=== PATIENT | female | born 1930 | race Caucasian/White ===

== ENCOUNTER 2017-01-05 07:08 | Emergency (ER) | payer OTHER, MEDICARE ==
--- NOTE | 2017-01-05 07:14 | PDOC ---
History of Present Illness - History of Present Illness Initial Comments: 01/05/17 08:12 Patient is a 86 year old female with a history of HTN, HLD who presents with left hip pain following a fall. The patient reports missing a step yesterday evening and fell in a twisting motion to the ground and striking the back of her head with immediate pain in her left hip. She states that she did not lose consciousness when she struck her head and was ambulatory with assistance after the fall. She reports that the pain in her hip worsened overnight with her being unable to move her left leg prompting her to present to the ED this morning. She is normally able to ambulate without assistance. She also reports some sharp pain worse with touch to the right side of her chest in the mid- axillary line. She denies fevers, chills, headache, SOB, chest pain, abdominal pain, or changes with urination or bowel movements. <Luther Willis - Last Filed: 01/05/17 08:24> <Gladys Hwang - Last Filed: 01/05/17 12:52> - General Chief Complaint: Injury Stated Complaint: FALL Time Seen by Provider: 01/05/17 07:14 Past History - Past Medical History Anemia: No Asthma: No Cancer: No Cardiac Disorders: No CVA: No COPD: No CHF: No Dementia: No Diabetes: Yes (BORDERLINE-NO MEDICINE) GI Disorders: No Disorders: No HTN: Yes Hypercholesterolemia: Yes Liver Disease: No Seizures: No Thyroid Disease: No - Surgical History Abdominal Surgery: No Appendectomy: No Cardiac Surgery: No Cholecystectomy: No Lung Surgery: No Neurologic Surgery: No Orthopedic Surgery: No - Psycho/Social/Smoking Cessation Hx Smoking History: Never smoked Have you smoked in the past 12 months: No Hx Alcohol Use: Yes (OCCASIONAL) Drug/Substance Use Hx: No Substance Use Type: None Hx Substance Use Treatment: No <Luther Willis - Last Filed: 01/05/17 08:24> <Gladys Hwang - Last Filed: 01/05/17 12:52> - Past Medical History Allergies/Adverse Reactions: Allergies Allergy/AdvReac Type Severity Reaction Status Date / Time Sulfa (Sulfonamide Allergy Verified 01/05/17 07:46 Antibiotics) Home Medications: Ambulatory Orders Aspirin [ASA -] 81 mg PO DAILY 03/05/13 Calcium Carbonate [Tums Ultra] 750 mg PO BID 03/05/13 Quinapril HCl [Accupril -] 40 mg PO DAILY 03/05/13 Simvastatin [Zocor -] 40 mg PO HS 03/05/13 Triamterene/Hydrochlorothiazid [Triamterene-Hctz 37.5-25 mg Tb] 1 each PO DAILY 03/05/13 Acetaminophen W/ Codeine #3 [Tylenol # 3 -] 1 tab PO PRN PRN #10 tablet MDD 3 Review of Systems - Review of Systems Constitutional: No: Chills, Fever HEENTM: No: Recent change in vision Respiratory: No: Cough, Shortness of Breath Cardiac (ROS): No: Chest Pain, Lightheadedness, Palpitations ABD/GI: Yes: Constipated. No: Diarrhea, Nausea, Vomiting : No: Burning, Dysuria, Hematuria Musculoskeletal: Yes: Joint Pain Integumentary: No: Rash Neurological: No: Headache, Numbness, Tingling, Weakness <Luther Willis - Last Filed: 01/05/17 08:24> *Physical Exam - Physical Exam Comments: 01/05/17 08:19 General Appearance: Nourished. No Apparent Distress HEENT: EOMI, ANA. No Pharyngeal Erythema, Tonsillar Exudate, Tonsillar Erythema Neck: No Decreased range of motion, or Lymphadenopathy or C-spine tenderness Respiratory/Chest: Lungs Clear, Normal Breath Sounds. Mild pinpoint tenderness to palpation in the right mid axillary line of the chest wall. No Crackles, Rales, Rhonchi, Wheezing Cardiovascular: Regular Rhythm, Regular Rate. No Murmur, Gallop/S3, Gallop/S4 Gastrointestinal/Abdominal: Normal Bowel Sounds, Soft. No Guarding, Rebound, Tenderness Extremity: Normal Capillary Refill, inability to range the left leg at the hip with active movement. Pain on passive movement of the left hip including leg roll. Sensation to light touch and temperature intact in the distal extremities , 2+ DP pulses bilaterally. Integumentary: Normal Color, Dry, Warm Neurologic: dough catcher II-XII NML intact, Fully Oriented, Alert, Normal Mood/Affect, Normal Response, Motor Strength 5/5. Normal Finger to Nose <Luther Willis - Last Filed: 01/05/17 08:24> - Vital Signs Last Vital Signs Temp Pulse Resp BP Pulse Ox 97.7 F 75 17 148/77 98 01/05/17 07:35 01/05/17 11:35 01/05/17 07:35 01/05/17 11:35 01/05/17 11:35 <Gladys Hwang - Last Filed: 01/05/17 12:52> ED Treatment Course - LABORATORY CBC & Chemistry Diagram: 01/05/17 07:41 01/05/17 09:24 - ADDITIONAL ORDERS Additional order review: Laboratory Results 01/05/17 09:24 Sodium 140 Potassium 4.5 Chloride 103 Carbon Dioxide 27 Anion Gap 10 BUN 25 H Creatinine 0.6 Creat Clearance w eGFR > 60 Random Glucose 107 H Calcium 9.7 Total Bilirubin 0.7 AST 34 ALT 27 Alkaline Phosphatase 53 Total Protein 7.8 Albumin 4.0 01/05/17 07:41 RBC 4.76 MCV 85.7 MCHC 33.0 RDW 14.4 MPV 10.4 Neutrophils % 72.9 Lymphocytes % 18.0 Monocytes % 7.2 Eosinophils % 1.2 Basophils % 0.7 - RADIOLOGY Radiology Studies Ordered: Category Date Time Status LOWER EXTREMITY CT W/O CONTR [CT] Stat CT Scan 01/05/17 11:10 Completed CHEST PA & LAT [RAD] Stat Radiology 01/05/17 08:01 Completed RIBS RIGHT SIDE [RAD] Stat Radiology 01/05/17 08:01 Completed - Medications Given in the ED: ED Medications Discontinued Medications Generic Name Dose Route Start Last Admin Trade Name Freq PRN Reason Stop Dose Admin Acetaminophen 975 mg 01/05/17 08:01 01/05/17 08:15 Tylenol - PO 01/05/17 08:02 975 mg ONCE ONE Administration <Gladys Hwang - Last Filed: 01/05/17 12:52> Medical Decision Making - Medical Decision Making 01/05/17 08:20 Patient is a 86 year old female with a history of HTN, HLD who presents with left hip pain following a fall. Differential includes but is not limited to: Intracranial bleed, Hip fracture, pelvic fracture, musculoskeletal strain. We will obtain a cbc, cmp to evaluate as well as chest, hip and pelvis radiographs and a head CT. 01/05/17 08:27 <Luther Willis - Last Filed: 01/05/17 08:24> *DC/Admit/Observation/Transfer <Luther Willis - Last Filed: 01/05/17 08:24> - Discharge Dispostion Admit: No <Gladys Hwang - Last Filed: 01/05/17 12:52> Diagnosis at time of Disposition: Fracture of superior pubic ramus Qualifiers: Encounter type: initial encounter Fracture type: closed Laterality: left Qualified Code(s): S32.512A - Fracture of superior rim of left pubis, initial encounter for closed fracture - Discharge Dispostion Disposition: HOME Condition at time of disposition: Stable - Prescriptions Prescriptions: Acetaminophen W/ Codeine #3 [Tylenol # 3 -] 1 tab PO PRN PRN #10 tablet MDD 3 PRN Reason: Pain - Referrals Referrals: Thiago Tello MD [Primary Care Provider] - Dereck Amaya MD [Staff Physician] - - Patient Instructions Printed Discharge Instructions: DI for Pelvic Fracture Additional Instructions: Please take all meds as prescribed. Please weight bear as tolerated. Please follow up with orthopedics as discussed. Please follow up with your PMD. Please return to the ED with any further concerns.
--- NOTE | 2017-01-05 07:18 | PDOC ---
Attending Attestation - Resident Resident Name: Luther Willis - ED Attending Attestation I have performed the following: I have examined & evaluated the patient, The case was reviewed & discussed with the resident, I agree w/resident's findings & plan, Exceptions are as noted - HPI HPI: 01/05/17 08:11 86yo female with a pmhx of HTN and HLD presents to the ED for eval of L hip pain. Pt states she was outside [employer] last night talking with some friends. States she didn't realize she was still standing on a step when she turned and had a mechanical fall off the last step landing on her L side. States she may have hit her head, but denies LOC. Pt c/o L hip pain today. States she needed assistance getting up last night after the fall and has needed help ambulating since the fall. States she is normally able to ambulate without assistance. States since the fall she has needed assistance with ambulation. Pt denies cp/ sob/lightheaded, dizziness, palpitations prior to or since the fall. No peace. No neck pain. No back pain. No paresthesias. No cp/sob. No abd pain. No n/v/d. Pt states L hip pain and R rib pain mid-axillary. No other weakness. Denies f/ c. No cough. No congestion. No rhinorrhea. No dysuria or urinary complaints. Has not taken any meds for pain. No other complaints. - Physicial Exam PE: 01/05/17 08:14 Gen: aaox3, nad Head: NC/AT Neck: supple, no c-spine ttp, no step offs or deformities, FROM of neck HEENT: EOMI, post pharynx clear Heart: +S1S2 reg, no anterior chest wall ttp, pinpoint R midaxillary line ttp, no ecchymosis to chest wall Lungs: CTA b/l Abd: soft, nt/nd +bx Back: no midline ttp, no step offs or deformities Ext: radial and pedal pulses 2+, no paresthesias, sensation intact, FROM of UE, muscle strength 5/5 UE, FROM of RLE, limited ROM of LLE secondary to pain, +log roll LLE, no ttp L lateral hip, mild ttp medial groin/inguinal canal, no knee ttp, no ankle ttp, FROM of ankle, Limited ROM of knee secondary to pain in hip Skin: no ecchymosis, intact Neuro: CN II-XII grossly intact, no focal deficits Psych: appropriate - Medical Decision Making 01/05/17 08:18 a/p: 86yo female with a mechanical fall 1 day prior to arrival in the ED -labs -ekg -cxr with rib xray -ct head (pt is on ASA) -pelvis xray and L hip xray -pain control -reassess 01/05/17 09:28 ct reviewed: moderate atrophy, chronic microvascular ischemic changes, no gross evidence of focal intracranial lesion or hemorrhage is seen 01/05/17 11:26 xrays reviewed: no acute fx, pt with difficulty ambulating in the ED. will obtain ct to r/o occult fx of L hip <Gladys Hwang - Last Filed: 01/05/17 11:26> - Medical Decision Making 01/05/17 12:40 Orthopedist certified control systems technician paged via phone answering service. ABY Resendez certified control systems technician. Awaiting call back. 01/05/17 12:44 ABY Resendez responded to the page and the patient's case was discussed. Patient to follow up in office as outpatient. ABY agrees with plan. 01/05/17 12:53 Dr. Tello paged via phone answering service. Informed Dr. Méndez is certified control systems technician. Awaiting call back. 01/05/17 12:56 Dr. Méndez responded to the page. Patients case was discussed. Agrees with plan. Documentation prepared by Meghna Sloan, acting as biomedical equipment specialist for Gladys Hwang MD <Meghna Sloan - Last Filed: 01/05/17 12:57> Heart Score/ECG Review - ECG Intrepretation Comment:: 01/05/17 08:19 ekg: sinus at 73, nl axis, nl interval, fusion complexes seen, no acute st/t wave findings <Gladys Hwang - Last Filed: 01/05/17 11:26>
[2017-01-05 08:01] VITALS: TEMP 97.7; BMI 24.0
[2017-01-05] MEDS ORDERED: ACETAMINOPHEN 325 MG TABLET (FP) PO ONE (08:01)
[2017-01-05] MEDS ORDERED: ACETAMINOPHEN 325 MG TABLET (FP) ONE (08:17)
[2017-01-05 08:55] LABS: BASOPHIL 0.7 % (0-2.0); EOSINOPHIL 1.2 % (0-4.5); MCH 28.3 pg (25.7-33.7); MEAN CELL VOLUME 85.7 fl (80-96); MEAN PLT VOLUME 10.4 fl (7.5-11.1); NEUTROPHILS 72.9 % (42.8-82.8); RDW 14.4 % (11.6-15.6); WHITE BLOOD COUNT 9.2 K/mm3 (4.0-10.0)
[2017-01-05 09:51] LABS: ALK PHOS 53 U/L (45-117); ANION GAP 10 (8-16); BILIRUBIN,TOTAL 0.7 mg/dL (0.2-1.0); CALCIUM 9.7 mg/dL (8.5-10.1); CO2 27 mmol/L (21-32); CREATININE 0.6 mg/dL (0.55-1.02); GLUCOSE,RANDOM 107 mg/dL (74-106); SGOT/AST 34 U/L (15-37); SGPT/ALT 27 U/L (12-78); TOT PROT 7.8 g/dl (6.4-8.2)
[2017-01-05 10:14] LABS: PLATELET COUNT 187 K/MM3 (134-434); PLATELET ESTIMATE ADEQUATE (NORMAL)
--- NOTE | 2017-01-05 12:30 | EKG ---
Test Reason : Blood Pressure : / mmHG Vent. Rate : 073 BPM Atrial Rate : 073 BPM P-R Int : 172 ms QRS Dur : 084 ms QT Int : 438 ms P-R-T Axes : 056 -07 031 degrees QTc Int : 482 ms SINUS RHYTHM WITH FUSION COMPLEXES POSSIBLE LEFT ATRIAL ENLARGEMENT BORDERLINE ECG NO PREVIOUS ECGS AVAILABLE BASE LLINE ARTIFACTS REPEAT EKG IF CLINICALLY INDICATED Confirmed by VALORIE RODNEY MD ([id number]) on 01/05/2017 12:29:56 PM Referred By: Confirmed By:VALORIE RODNEY MD
[2017-01-05 13:14] VITALS: BP 154/69; PULSE 71
== END 2017-01-05 13:14 | disposition home or self-care (01) ==
LOC: JER 07:08
DX: S32.512A Fracture of superior rim of left pubis, initial encounter for closed fracture (principal); W10.8XXA Fall (on) (from) other stairs and steps, initial encounter; Y93.89 Activity, other specified; Y92.22 Religious institution as the place of occurrence of the external cause; Y99.8 Other external cause status; I10 Essential (primary) hypertension; E11.9 Type 2 diabetes mellitus without complications; E78.00 Pure hypercholesterolemia, unspecified
CPT/HCPCS: 36415; 70450-TC; 71020-TC; 71101-TC-RT; 73523-TC; 73700-TC-RT; 80053; 85025; 93005; 93010; 99282-25

== ENCOUNTER 2017-02-09 14:49 | Inpatient (IN) | payer OTHER, MEDICARE ==
[2017-02-09] MEDS ORDERED: ACETAMINOPHEN 1000 MG/100 ML VIAL (NON FORMULARY) IVPB ONE (16:42)
[2017-02-09] MEDS ORDERED: SODIUM CHLORIDE 1,000 ML IV SCH (16:45)
[2017-02-09 16:50] LABS: BASOPHIL 0.4 % (0-2.0); EOSINOPHIL 0.2 % (0-4.5); MCHC 33.1 g/dl (32.0-36.0); MEAN CELL VOLUME 84.5 fl (80-96); MEAN PLT VOLUME 10.4 fl (7.5-11.1); NEUTROPHILS 76.3 % (42.8-82.8); PLATELET COUNT 374 K/MM3 (134-434); RDW 13.7 % (11.6-15.6); WHITE BLOOD COUNT 12.1 K/mm3 (4.0-10.0)
[2017-02-09] MEDS ORDERED: ACETAMINOPHEN INJECTION 100 ML IVPB ONE (17:11)
--- NOTE | 2017-02-09 17:17 | PDOC ---
History of Present Illness - General Chief Complaint: Lethargy Stated Complaint: LETHARGY History Source: Patient, Family, Primary Care Provider Exam Limitations: No Limitations - History of Present Illness Initial Comments: 02/09/17 17:02 This 86 year old female fell resulting in a pelvic fracture. It was stable and pt was discharged to home. she is now brought in by her family becasue they are concerned she hasn't eaten or drank in a few days. She does not want to take the pain medications because it makes her nausea and loopy. Dr. Tello requested pt to come into ER for admission for failure to thrive, dehydration evaluation. Past History - Past Medical History Allergies/Adverse Reactions: Allergies Allergy/AdvReac Type Severity Reaction Status Date / Time Sulfa (Sulfonamide Allergy Verified 01/05/17 07:46 Antibiotics) Home Medications: Ambulatory Orders Aspirin [ASA -] 81 mg PO DAILY 03/05/13 Calcium Carbonate [Tums Ultra] 750 mg PO BID 03/05/13 Quinapril HCl [Accupril -] 40 mg PO DAILY 03/05/13 Simvastatin [Zocor -] 40 mg PO HS 03/05/13 Triamterene/Hydrochlorothiazid [Triamterene-Hctz 37.5-25 mg Tb] 1 each PO DAILY 03/05/13 Anemia: No Asthma: No Cancer: No Cardiac Disorders: No CVA: No COPD: No CHF: No Dementia: No Diabetes: Yes (BORDERLINE-NO MEDICINE) GI Disorders: No Disorders: No HTN: Yes Hypercholesterolemia: Yes Liver Disease: No Seizures: No Thyroid Disease: No - Surgical History Abdominal Surgery: No Appendectomy: No Cardiac Surgery: No Cholecystectomy: No Lung Surgery: No Neurologic Surgery: No Orthopedic Surgery: No - Suicide/Smoking/Psychosocial Hx Smoking History: Never smoked Have you smoked in the past 12 months: No Information on smoking cessation initiated: No Hx Alcohol Use: No Drug/Substance Use Hx: No Substance Use Type: None Hx Substance Use Treatment: No Review of Systems - Review of Systems Able to Perform ROS?: Yes Constitutional: No: Symptoms Reported HEENTM: No: Symptoms Reported Respiratory: No: Symptoms reported Cardiac (ROS): No: Symptoms Reported ABD/GI: Yes: Nausea, Poor Appetite, Poor Fluid Intake. No: Abdominal Distended , Vomiting : No: Symptoms Reported Musculoskeletal: Yes: Other (diff in ambulating with pelvic pain) Integumentary: No: Symptoms Reported *Physical Exam - Vital Signs Last Vital Signs Temp Pulse Resp BP Pulse Ox 97.9 F 90 18 155/66 100 02/09/17 14:49 02/09/17 14:49 02/09/17 14:49 02/09/17 14:49 02/09/17 14:49 - Physical Exam HEENT: positive: Normal Voice Respiratory/Chest: positive: Lungs Clear Cardiovascular: positive: Regular Rate Gastrointestinal/Abdominal: positive: Normal Bowel Sounds, Flat, Soft, Other ( pain on standing due to pelvic pain) Integumentary: positive: Normal Color, Dry, Warm ED Treatment Course - LABORATORY CBC & Chemistry Diagram: 02/09/17 16:45 02/09/17 16:45 - ADDITIONAL ORDERS Additional order review: 02/09/17 16:45 RBC 4.64 MCV 84.5 MCHC 33.1 RDW 13.7 MPV 10.4 Neutrophils % 76.3 Lymphocytes % 13.2 D Monocytes % 9.9 Eosinophils % 0.2 D Basophils % 0.4 - RADIOLOGY Radiology Studies Ordered: Category Date Time Status PELVIS [RAD] Stat Radiology 02/09/17 16:42 Ordered Medical Decision Making - Medical Decision Making 02/09/17 17:06 Pt seen and examined. Pt has not had much to eat or drink in several days and concern for dehydration with a new recent hip fracture. -labs follow up -pelvic xray -IVF -pain meds -dispo probable admission
--- NOTE | 2017-02-09 17:37 | PDOC ---
*Physical Exam - Vital Signs Last Vital Signs Temp Pulse Resp BP Pulse Ox 97.9 F 90 18 155/66 100 02/09/17 14:49 02/09/17 14:49 02/09/17 14:49 02/09/17 14:49 02/09/17 14:49 - Physical Exam Comments: 02/09/17 17:37 The patient was examined by [BALWINDER Sanabria] under my direct supervision. I personally evaluated the patient. I concur with the above findings and the plan of care. ED Treatment Course - LABORATORY CBC & Chemistry Diagram: 02/09/17 16:45 02/09/17 17:51 - ADDITIONAL ORDERS Additional order review: Laboratory Results 02/09/17 02/09/17 16:45 16:45 Sodium Cancelled Potassium Cancelled Chloride Cancelled Carbon Dioxide Cancelled Anion Gap Cancelled BUN Cancelled Creatinine Cancelled Creat Clearance w eGFR Cancelled Random Glucose Cancelled Calcium Cancelled Total Bilirubin Cancelled AST Cancelled ALT Cancelled Alkaline Phosphatase Cancelled Total Protein Cancelled Albumin Cancelled Cancelled Prealbumin Cancelled 02/09/17 16:45 RBC 4.64 MCV 84.5 MCHC 33.1 RDW 13.7 MPV 10.4 Neutrophils % 76.3 Lymphocytes % 13.2 D Monocytes % 9.9 Eosinophils % 0.2 D Basophils % 0.4 *DC/Admit/Observation/Transfer Diagnosis at time of Disposition: Failure to thrive, Dehydration
[2017-02-09 18:33] LABS: URINE APPEARANCE CLEAR; URINE BILIRUBIN NEGATIVE (NEGATIVE); URINE BLOOD NEGATIVE (NEGATIVE); URINE COLOR LTYELLOW; URINE GLUCOSE (UA) NEGATIVE (NEGATIVE); URINE KETONE NEGATIVE (NEGATIVE); URINE NITRITE NEGATIVE (NEGATIVE); URINE PROTEIN NEGATIVE (NEGATIVE); URINE UROBILINOGEN NEGATIVE mg/dL (0.2-1.0)
[2017-02-09 18:45] LABS: ALBUMIN 3.1 g/dl (3.4-5.0); ANION GAP 10 (8-16); BILIRUBIN,TOTAL 0.5 mg/dL (0.2-1.0); CALCIUM 8.8 mg/dL (8.5-10.1); CO2 26 mmol/L (21-32); GLUCOSE,RANDOM 120 mg/dL (74-106); SGOT/AST 12 U/L (15-37); SGPT/ALT 21 U/L (12-78); TOT PROT 7.1 g/dl (6.4-8.2)
[2017-02-09 18:47] LABS: ALK PHOS 310 U/L (45-117)
[2017-02-09] MEDS ORDERED: DEXTROSE 5%-0.45% SALINE 1,000 ML IV SCH (19:45)
--- NOTE | 2017-02-09 19:55 | PDOC ---
*Physical Exam - Vital Signs Last Vital Signs Temp Pulse Resp BP Pulse Ox 98.1 F 82 17 124/63 96 02/09/17 19:05 02/09/17 19:05 02/09/17 19:05 02/09/17 19:05 02/09/17 19:05 ED Treatment Course - LABORATORY CBC & Chemistry Diagram: 02/09/17 16:45 02/09/17 17:51 - ADDITIONAL ORDERS Additional order review: Laboratory Results 02/09/17 02/09/17 02/09/17 18:25 17:51 17:51 Sodium 140 Potassium 3.9 Chloride 104 Carbon Dioxide 26 Anion Gap 10 BUN 52 H D Creatinine 1.0 D Creat Clearance w eGFR 52.69 Random Glucose 120 H Calcium 8.8 Total Bilirubin 0.5 D AST 12 L D ALT 21 D Alkaline Phosphatase 310 H D Total Protein 7.1 Albumin 3.1 L 3.1 L D Prealbumin 11.6 L Urine Color Ltyellow Urine Appearance Clear Urine pH 5.0 Urine Protein Negative Urine Glucose (UA) Negative Urine Ketones Negative Urine Blood Negative Urine Nitrite Negative Urine Bilirubin Negative Urine Urobilinogen Negative 02/09/17 02/09/17 16:45 16:45 Sodium Cancelled Potassium Cancelled Chloride Cancelled Carbon Dioxide Cancelled Anion Gap Cancelled BUN Cancelled Creatinine Cancelled Creat Clearance w eGFR Cancelled Random Glucose Cancelled Calcium Cancelled Total Bilirubin Cancelled AST Cancelled ALT Cancelled Alkaline Phosphatase Cancelled Total Protein Cancelled Albumin Cancelled Cancelled Prealbumin Cancelled Urine Color Urine Appearance Urine pH Urine Protein Urine Glucose (UA) Urine Ketones Urine Blood Urine Nitrite Urine Bilirubin Urine Urobilinogen 02/09/17 16:45 RBC 4.64 MCV 84.5 MCHC 33.1 RDW 13.7 MPV 10.4 Neutrophils % 76.3 Lymphocytes % 13.2 D Monocytes % 9.9 Eosinophils % 0.2 D Basophils % 0.4 - RADIOLOGY Radiology Studies Ordered: Category Date Time Status CHEST X-RAY PORTABLE* [RAD] Stat Radiology 02/09/17 19:42 Ordered - Medications Given in the ED: ED Medications Discontinued Medications Generic Name Dose Route Start Last Admin Trade Name Freq PRN Reason Stop Dose Admin Acetaminophen 1,000 mg 02/09/17 16:42 02/09/17 17:25 Ofirmev Injection - IVPB 02/09/17 16:43 1,000 mg ONCE ONE Administration Progress Note - Progress Note Progress Note: 1950hrs: Called Dr. Amin/ Pt's PMD. Dr. Tillman is covering/ Hospitalist admits for Primo *DC/Admit/Observation/Transfer Diagnosis at time of Disposition: Dehydration Failure to thrive Qualifiers: Failure to thrive age range: in adult Qualified Code(s): R62.7 - Adult failure to thrive - Discharge Dispostion Admit: Yes
[2017-02-09] MEDS ORDERED: ACETAMINOPHEN 325 MG TABLET (FP) PO PRN (21:26)
[2017-02-09] MEDS ORDERED: CALCIUM CARBONATE 650 MG TABLET PO PRN (22:00)
[2017-02-09 23:09] LABS: URINE LEUK ESTERASE Negative (NEGATIVE)
[2017-02-09] MEDS: DEXTROSE 5%-NORMAL SALINE 1,000 ML IV SCH (23:45)
[2017-02-10 00:50] VITALS: BMI 21.8
[2017-02-10 08:06] LABS: ALBUMIN 2.8 g/dl (3.4-5.0); ANION GAP 10 (8-16); BILIRUBIN,TOTAL 0.4 mg/dL (0.2-1.0); CALCIUM 8.5 mg/dL (8.5-10.1); CO2 26 mmol/L (21-32); CREATININE 0.8 mg/dL (0.55-1.02); GLUCOSE,RANDOM 126 mg/dL (74-106); MAGNESIUM 2.8 mg/dL (1.8-2.4); SGOT/AST 17 U/L (15-37); SGPT/ALT 25 U/L (12-78)
[2017-02-10 08:08] LABS: BASOPHIL 0.5 % (0-2.0); MCHC 33.1 g/dl (32.0-36.0); MEAN CELL VOLUME 84.6 fl (80-96); MEAN PLT VOLUME 9.9 fl (7.5-11.1); NEUTROPHILS 61.5 % (42.8-82.8); PLATELET COUNT 312 K/MM3 (134-434); RDW 13.7 % (11.6-15.6); WHITE BLOOD COUNT 8.1 K/mm3 (4.0-10.0)
[2017-02-10 08:18] LABS: ALK PHOS 292 U/L (45-117); TOT PROT 6.3 g/dl (6.4-8.2)
[2017-02-10] MEDS: PANTOPRAZOLE 40 MG TABLET (FP) PO SCH (09:51)
[2017-02-10] MEDS: ASPIRIN 81 MG CHEWABLE TABLETS PO SCH (09:51)
[2017-02-10] MEDS ORDERED: POLYETHYLENE GLYCOL 3350 119 GM BTL PO ONE (14:15)
--- NOTE | 2017-02-10 16:17 | EKG ---
Test Reason : Blood Pressure : / mmHG Vent. Rate : 085 BPM Atrial Rate : 085 BPM P-R Int : 170 ms QRS Dur : 128 ms QT Int : 402 ms P-R-T Axes : 066 -18 047 degrees QTc Int : 478 ms NORMAL SINUS RHYTHM RIGHT BUNDLE BRANCH BLOCK ABNORMAL ECG WHEN COMPARED WITH ECG OF 05-JAN-2017 07:27, FUSION COMPLEXES ARE NO LONGER PRESENT RIGHT BUNDLE BRANCH BLOCK IS NOW PRESENT REPEAT EKG INDICATED Confirmed by VALORIE RODNEY MD ([id number]) on 02/10/2017 4:16:34 PM Referred By: Confirmed By:VALORIE RODNEY MD
--- NOTE | 2017-02-10 18:01 | HP ---
Admitting History and Physical - Primary Care Physician PCP: Thiago Tello - Admission Chief Complaint: Very weak and dehydrated History of Present Illness: 86 yo female with past medical history of HTN, HLD, recent pelvic fracture s/p fall presented to the ER with c/o generalized weakness and feeling dehydrated. She fell a month back and sustained pelvic fracture for which she is following with orthopedic. But for last few days she has been feeling very weak. Did not have appetite resulting in poor PO intake. Denies chest pain, shortness of breath, palpitation or dizziness. Denies headache or blurring of vision. Denies bladder or bowel complaints. History Source: Patient, Family Member Limitations to Obtaining History: No Limitations - Past Medical History Cardiovascular: Yes: HTN, Hyperlipdemia - Smoking History Smoking history: Never smoked Have you smoked in the past 12 months: No - Alcohol/Substance Use Hx Alcohol Use: No Home Medications - Allergies Allergies/Adverse Reactions: Allergies Allergy/AdvReac Type Severity Reaction Status Date / Time Sulfa (Sulfonamide Allergy Verified 01/05/17 07:46 Antibiotics) - Home Medications Home Medications: Ambulatory Orders Aspirin [ASA -] 81 mg PO DAILY 03/05/13 Calcium Carbonate [Tums Ultra] 750 mg PO BID 03/05/13 Quinapril HCl [Accupril -] 40 mg PO DAILY 03/05/13 Simvastatin [Zocor -] 40 mg PO HS 03/05/13 Triamterene/Hydrochlorothiazid [Triamterene-Hctz 37.5-25 mg Tb] 1 each PO DAILY 03/05/13 Review of Systems - Review of Systems Constitutional: reports: Weakness Eyes: reports: No Symptoms HENT: reports: No Symptoms Neck: reports: No Symptoms Cardiovascular: reports: No Symptoms Respiratory: reports: No Symptoms Gastrointestinal: reports: No Symptoms Genitourinary: reports: No Symptoms Musculoskeletal: reports: Joint Pain Physical Examination Vital Signs: Vital Signs Temperature 97.8 F 02/10/17 14:05 Pulse Rate 81 02/10/17 14:05 Respiratory Rate 20 02/10/17 14:05 Blood Pressure 124/55 02/10/17 14:05 O2 Sat by Pulse Oximetry (%) 98 02/10/17 09:00 Constitutional: Yes: Anxious, Moderate Distress Eyes: Yes: Conjunctiva Clear, EOM Intact HENT: Yes: Atraumatic, Normocephalic Neck: Yes: Supple, Trachea Midline Cardiovascular: Yes: Regular Rate and Rhythm Respiratory: Yes: Regular, CTA Bilaterally Gastrointestinal: Yes: Normal Bowel Sounds, Soft Extremities: Yes: WNL Edema: No Peripheral Pulses WNL: Yes Integumentary: Yes: WNL Neurological: Yes: Alert, Oriented ...Motor Strength: WNL Psychiatric: Yes: WNL Labs: CBC, BMP 02/10/17 06:00 02/10/17 06:00 Imaging - Results X-ray: Report Reviewed Problem List - Problems (1) Acute renal failure Assessment/Plan: In the setting of poor PO intake. Improving with IV fluids. Continue same. Patient encouraged to increase PO intake. Code(s): N17.9 - ACUTE KIDNEY FAILURE, UNSPECIFIED (2) Failure to thrive Assessment/Plan: Much improved since admission. Patient with improved PO intake. Code(s): [id number] - Qualifiers: Failure to thrive age range: in adult Qualified Code(s): R62.7 - Adult failure to thrive; R62.7 - Adult failure to thrive (3) Fracture of superior pubic ramus Assessment/Plan: Healing well per x ray report in the system. Cannot tolerate tramadol. Pain manageable according to the patient. Tylenol prn. Code(s): S32.519A - FRACTURE OF SUPERIOR RIM OF UNSP PUBIS, INIT FOR CLOS FX Qualifiers: Encounter type: initial encounter Fracture type: closed Laterality : left Qualified Code(s): S32.512A - Fracture of superior rim of left pubis , initial encounter for closed fracture; S32.512A - Fracture of superior rim of left pubis, initial encounter for closed fracture; S32.512A - Fracture of superior rim of left pubis, initial encounter for closed fracture (4) Hypertension Assessment/Plan: Decent control for now. Low salt diet. Code(s): I10 - ESSENTIAL (PRIMARY) HYPERTENSION (5) Hyperlipidemia Code(s): E78.5 - HYPERLIPIDEMIA, UNSPECIFIED Assessment/Plan Fall precaution. Continue GI/DVT prophylaxis.
[2017-02-10] MEDS ORDERED: QUEtiapine FUMARATE 25 MG TABLET (FP) PO ONE (21:33)
[2017-02-11 08:00] LABS: BASOPHIL 0.5 % (0-2.0); EOSINOPHIL 0.7 % (0-4.5); MCH 27.6 pg (25.7-33.7); MCHC 32.2 g/dl (32.0-36.0); MEAN CELL VOLUME 85.6 fl (80-96); MEAN PLT VOLUME 9.4 fl (7.5-11.1); NEUTROPHILS 66.1 % (42.8-82.8); PLATELET COUNT 359 K/MM3 (134-434); RDW 13.7 % (11.6-15.6); WHITE BLOOD COUNT 7.9 K/mm3 (4.0-10.0)
[2017-02-11 08:37] LABS: ALK PHOS 311 U/L (45-117); ANION GAP 9 (8-16); BILIRUBIN,TOTAL 0.4 mg/dL (0.2-1.0); CALCIUM 9.1 mg/dL (8.5-10.1); CO2 27 mmol/L (21-32); CREATININE 0.7 mg/dL (0.55-1.02); GLUCOSE,RANDOM 150 mg/dL (74-106); SGOT/AST 13 U/L (15-37); SGPT/ALT 26 U/L (12-78); TOT PROT 6.8 g/dl (6.4-8.2)
[2017-02-11] MEDS: PANTOPRAZOLE 40 MG TABLET (FP) PO SCH (11:16)
[2017-02-11] MEDS: ASPIRIN 81 MG CHEWABLE TABLETS PO SCH (11:16)
--- NOTE | 2017-02-11 15:58 | PN ---
Physical Exam: SUBJECTIVE: Patient seen and examined at bedside. Denies all c/o at present. OBJECTIVE: Vital Signs Period Temp Pulse Resp BP Sys/Garcia Pulse Ox Last 24 Hr 98.1 F-98.8 F 77-96 18-20 126-150/57-72 98 GENERAL: The patient is awake, alert, and fully oriented, in no acute distress. HEAD: Normal with no signs of trauma. LUNGS: Breath sounds equal, clear to auscultation bilaterally, no wheezes, no crackles, no accessory muscle use. HEART: Regular rate and rhythm, S1, S2 without murmur, rub or gallop. ABDOMEN: Soft, nontender, nondistended, normoactive bowel sounds, no guarding, no rebound, no hepatosplenomegaly, no masses. EXTREMITIES: 2+ pulses, warm, well-perfused, no edema. Pain to palpation of left iliac crest. NEUROLOGICAL: Cranial nerves II through XII grossly intact. Normal speech, gait not observed. PSYCH: Normal mood, normal affect. SKIN: Warm, dry, normal turgor, no rashes or lesions noted Laboratory Results - last 24 hr 02/11/17 02/11/17 07:00 07:00 WBC 7.9 RBC 4.07 Hgb 11.2 Hct 34.8 MCV 85.6 MCH 27.6 MCHC 32.2 RDW 13.7 Plt Count 359 MPV 9.4 Neutrophils % 66.1 Lymphocytes % 22.9 Monocytes % 9.8 Eosinophils % 0.7 Basophils % 0.5 Sodium 142 Potassium 4.2 Chloride 106 Carbon Dioxide 27 Anion Gap 9 BUN 26 H D Creatinine 0.7 Creat Clearance w eGFR > 60 Random Glucose 150 H Calcium 9.1 Total Bilirubin 0.4 AST 13 L D ALT 26 Alkaline Phosphatase 311 H Total Protein 6.8 Albumin 3.0 L Active Medications Generic Name Dose Route Start Last Admin Trade Name Freq PRN Reason Stop Dose Admin Acetaminophen 650 mg 02/09/17 21:26 Tylenol - PO Q6H PRN FEVER OR PAIN Aspirin 81 mg 02/10/17 10:00 02/11/17 11:16 Asa - PO 81 mg DAILY JENNIFER Administration Calcium Carbonate 650 mg 02/09/17 22:00 Calcium Carbonate - PO BID PRN INDIGESTION/HEARTBURN Dextrose/Sodium Chloride 1,000 mls @ 60 mls/hr 02/09/17 21:45 02/09/17 23:45 D5-Ns - IV 60 mls/hr ASDIR JENNIFER Administration Pantoprazole Sodium 40 mg 02/10/17 10:00 02/11/17 11:16 Protonix - PO 40 mg DAILY JENNIFER Administration ASSESSMENT/PLAN: A: 86yo woman with ANDER and clinical signs of dehydration. P: #ANDER - resolved with gentle IVF and PO hydration - encourage PO fluids #s/p pelvis fracture - PT - SNF placement #F/E/N - regular diet - replete prn #PPX - PT Dispo- Agrees with SNF placement. Awaiting placement. Visit type - Emergency Visit Emergency Visit: Yes ED Registration Date: 02/09/17 Care time: The patient presented to the Emergency Department on the above date and was hospitalized for further evaluation of their emergent condition. - New Patient This patient is new to me today: Yes Date on this admission: 02/11/17 - Critical Care Critical Care patient: No
[2017-02-12] MEDS: DEXTROSE 5%-NORMAL SALINE 1,000 ML IV SCH (01:16)
[2017-02-12 07:29] LABS: BASOPHIL 0.6 % (0-2.0); EOSINOPHIL 2.1 % (0-4.5); MCH 27.6 pg (25.7-33.7); MCHC 32.8 g/dl (32.0-36.0); MEAN CELL VOLUME 84.2 fl (80-96); MEAN PLT VOLUME 9.2 fl (7.5-11.1); NEUTROPHILS 55.7 % (42.8-82.8); PLATELET COUNT 328 K/MM3 (134-434); RDW 13.4 % (11.6-15.6)
[2017-02-12 07:50] LABS: ALBUMIN 2.6 g/dl (3.4-5.0); ANION GAP 8 (8-16); BILIRUBIN,TOTAL 0.4 mg/dL (0.2-1.0); CALCIUM 8.7 mg/dL (8.5-10.1); CO2 27 mmol/L (21-32); CREATININE 0.6 mg/dL (0.55-1.02); GLUCOSE,RANDOM 107 mg/dL (74-106); SGOT/AST 13 U/L (15-37); SGPT/ALT 21 U/L (12-78)
[2017-02-12 07:51] LABS: ALK PHOS 264 U/L (45-117)
[2017-02-12] MEDS: ASPIRIN 81 MG CHEWABLE TABLETS PO SCH (09:32)
[2017-02-12] MEDS: PANTOPRAZOLE 40 MG TABLET (FP) PO SCH (09:32)
[2017-02-12] MEDS ORDERED: MULTIVITAMINS (DAILY MVI) TABLET (FP) PO SCH (10:00)
--- NOTE | 2017-02-12 12:35 | PN ---
Progress Note, Physician Chief Complaint: Ms Card says she is feeling better. She says her pain is controlled. No cp , sob, n/v. - Current Medication List Current Medications: Active Medications Acetaminophen (Tylenol -) 650 mg PO Q6H PRN PRN Reason: FEVER OR PAIN Aspirin (Asa -) 81 mg PO DAILY [facility] Last Admin: 02/12/17 09:32 Dose: Not Given Calcium Carbonate (Calcium Carbonate -) 650 mg PO BID PRN PRN Reason: INDIGESTION/HEARTBURN Dextrose/Sodium Chloride (D5-Ns -) 1,000 mls @ 60 mls/hr IV ASDIR [facility] Last Admin: 02/12/17 01:16 Dose: Not Given Multivitamins/Minerals/Vitamin C (Tab-A-Vit -) 1 tab PO DAILY [facility] Last Admin: 02/12/17 09:32 Dose: Not Given Pantoprazole Sodium (Protonix -) 40 mg PO DAILY [facility] Last Admin: 02/12/17 09:32 Dose: Not Given - Objective Vital Signs: Vital Signs Temperature 36.9 C 02/12/17 09:46 Pulse Rate 83 02/12/17 09:46 Respiratory Rate 18 02/12/17 09:46 Blood Pressure 133/66 02/12/17 09:46 O2 Sat by Pulse Oximetry (%) 96 02/11/17 21:00 Constitutional: Yes: Well Nourished, No Distress, Calm Cardiovascular: Yes: Regular Rate and Rhythm. No: Gallop, Murmur, Rub Respiratory: Yes: Regular, CTA Bilaterally. No: Rales, Rhonchi, Wheezes Gastrointestinal: Yes: Normal Bowel Sounds, Soft. No: Distention, Tenderness Extremities: Yes: WNL Edema: No Labs: CBC, BMP 02/12/17 06:00 02/12/17 06:00 Problem List - Problems (1) Failure to thrive Assessment/Plan: -much improved -will stop IVF -plan for discharge to SNF when bed available Code(s): [id number] - Qualifiers: Failure to thrive age range: in adult Qualified Code(s): R62.7 - Adult failure to thrive; R62.7 - Adult failure to thrive (2) Fracture of superior pubic ramus Assessment/Plan: -continue pain control Code(s): S32.519A - FRACTURE OF SUPERIOR RIM OF UNSP PUBIS, INIT FOR CLOS FX Qualifiers: Encounter type: initial encounter Fracture type: closed Laterality : left Qualified Code(s): S32.512A - Fracture of superior rim of left pubis , initial encounter for closed fracture; S32.512A - Fracture of superior rim of left pubis, initial encounter for closed fracture; S32.512A - Fracture of superior rim of left pubis, initial encounter for closed fracture Assessment/Plan Dispo -plan for discharge to SNF when bed available
--- NOTE | 2017-02-12 14:50 | DS ---
Physical Examination Vital Signs: Vital Signs Temperature 36.9 C 02/12/17 09:46 Pulse Rate 83 02/12/17 09:46 Respiratory Rate 18 02/12/17 09:46 Blood Pressure 133/66 02/12/17 09:46 O2 Sat by Pulse Oximetry (%) 96 02/11/17 21:00 Labs: CBC, BMP 02/12/17 06:00 02/12/17 06:00 Discharge Summary Reason For Visit: FAILURE TO THRIVE, DEHYDRATION Current Active Problems Acute renal failure (Acute) Dehydration (Acute) Failure to thrive (Acute) Hyperlipidemia (Acute) Hypertension (Acute) Hospital Course: Please refer to progress note written today for physical exam. Ms Card is a pleasant 86 year old female who comes in with failure to thrive secondary to fall with pelvic fracture. She was admitted to the hospital and hydrated with IVF. Her pain was controlled with tramadol. She was seen by PT. She is currently improving and is safe for discharge to SNF. 31 minutes spent in preparation of this discharge Condition: Good - Instructions Diet, Activity, Other Instructions: regular diet. Up with assistance, further activity per PT at SNF. Referrals: Thiago Tello MD [Primary Care Provider] - Disposition: RESIDENTIAL FACILITY - Home Medications Comprehensive Discharge Medication List: Ambulatory Orders Aspirin [ASA -] 81 mg PO DAILY 03/05/13 Calcium Carbonate [Tums Ultra] 750 mg PO BID 03/05/13
[2017-02-12 16:00] VITALS: BP 147/74; PULSE 90; TEMP 97.5
== END 2017-02-12 17:32 | DRG 684 ==
LOC: JER 14:49 → JERBED 20:15 → J7W 22:27
PROVIDERS: ADMIT Specialist; ATTEND Internal Medicine
DX: N17.9 Acute kidney failure, unspecified (principal); E86.0 Dehydration; R62.7 Adult failure to thrive; I10 Essential (primary) hypertension; E78.5 Hyperlipidemia, unspecified
CPT/HCPCS: 36415; 71010-TC; 72170-TC; 80053; 81003; 82040; 83735; 84134; 85025; 87086; 93005; 93010; 97116-GP; 97161-GP; 99283-25

== ENCOUNTER 2020-10-15 15:04 | Inpatient (IN) | payer OTHER, MEDICARE ==
[2020-10-15 16:39] LABS: BASO % 0.6 % (0-2.0); EOS % 1.2 % (0-4.5); HEMOGLOBIN 13.5 GM/dL (10.7-15.3); LYMPH % 16.1 % (8-40); MCH 28.3 pg (25.7-33.7); MCHC 33.8 g/dl (32.0-36.0); MEAN CELL VOLUME 83.8 fl (80-96); MEAN PLT VOLUME 10.5 fl (7.5-11.1); MONO % 8.8 % (3.8-10.2); NEUT % 73.3 % (42.8-82.8); PLATELET COUNT 248 K/MM3 (134-434); RBC 4.78 M/mm3 (3.60-5.2); RDW 14.3 % (11.6-15.6); WHITE BLOOD COUNT 12.7 K/mm3 (4.0-10.0)
[2020-10-15 17:02] LABS: CHLORIDE 104 mmol/L (98-107); SODIUM 138 mmol/L (136-145)
[2020-10-15 17:04] LABS: ALBUMIN 4.1 g/dl (3.4-5.0); CALCIUM 10.1 mg/dL (8.5-10.1)
[2020-10-15 17:05] LABS: ANION GAP 9 MMOL/L (8-16); CO2 25 mmol/L (21-32); GLUCOSE,RANDOM 121 mg/dL (74-106)
[2020-10-15 17:08] LABS: CREATININE 0.8 mg/dL (0.55-1.3); SGOT/AST 34 U/L (15-37); SGPT/ALT 24 U/L (13-61)
[2020-10-15 17:09] LABS: BILIRUBIN,TOTAL 0.6 mg/dL (0.2-1); TOT PROT 8.1 g/dl (6.4-8.2)
[2020-10-15 17:11] LABS: ALK PHOS 57 U/L (45-117)
[2020-10-15 19:12] LABS: EPI CELLS 1 /uL (0-25.1); HYALINE CASTS 3 /uL (0-3.1); PH,URINE 5.5 (5.0-8.0); URINE APPEARANCE CLEAR; URINE BACTERIA >9,000 /uL (0-1359); URINE BILIRUBIN NEGATIVE (NEGATIVE); URINE COLOR YELLOW; URINE GLUCOSE (UA) NEGATIVE (NEGATIVE); URINE KETONE NEGATIVE (NEGATIVE); URINE LEUK ESTERASE 2+ (NEGATIVE); URINE NITRITE POSITIVE (NEGATIVE); URINE PROTEIN TRACE (NEGATIVE); URINE RBC 8 /uL (0-23.9); URINE UROBILINOGEN 0.2 mg/dL (0.2-1.0); URINE WBC 493 /uL (0-25.8)
[2020-10-15] MEDS ORDERED: CEFTRIAXONE 1,000 MG in DEXTROSE 5%-WATER - 50 ML IVPB ONE (19:31)
[2020-10-15] MEDS ORDERED: CEFTRIAXONE 1 GM/50 ML BAG ONE (19:41)
[2020-10-15] MEDS: ATORVASTATIN CA 20 MG TABLET (FP) PO SCH (22:23)
[2020-10-16 04:56] VITALS: BMI 24.6
[2020-10-16 07:59] LABS: HEMATOCRIT 36.8 % (32.4-45.2); HEMOGLOBIN 12.3 GM/dL (10.7-15.3); MCH 28.1 pg (25.7-33.7); MCHC 33.4 g/dl (32.0-36.0); MEAN PLT VOLUME 9.7 fl (7.5-11.1); PLATELET COUNT 202 K/MM3 (134-434); RBC 4.38 M/mm3 (3.60-5.2); RDW 14.1 % (11.6-15.6); WHITE BLOOD COUNT 11.2 K/mm3 (4.0-10.0)
[2020-10-16 08:16] LABS: CHLORIDE 107 mmol/L (98-107); SODIUM 141 mmol/L (136-145)
[2020-10-16 08:18] LABS: CALCIUM 9.4 mg/dL (8.5-10.1)
[2020-10-16 08:19] LABS: ALBUMIN 3.5 g/dl (3.4-5.0); ANION GAP 9 MMOL/L (8-16); BLOOD UREA NITROGEN 25.5 mg/dL (7-18); CO2 25 mmol/L (21-32); GLUCOSE,RANDOM 189 mg/dL (74-106); MAGNESIUM 2.3 mg/dL (1.8-2.4)
[2020-10-16 08:22] LABS: CREATININE 0.7 mg/dL (0.55-1.3); SGOT/AST 10 U/L (15-37); SGPT/ALT 13 U/L (13-61)
[2020-10-16 08:24] LABS: BILIRUBIN,TOTAL 0.5 mg/dL (0.2-1); TOT PROT 6.9 g/dl (6.4-8.2)
[2020-10-16 08:25] LABS: ALK PHOS 48 U/L (45-117)
[2020-10-16] MEDS ORDERED: DEXTROSE 5%-WATER - 50 ML IVPB ONE (09:49)
[2020-10-16] MEDS ORDERED: cefTRIAXone SODIUM 1 GM VIAL ONE (09:49)
[2020-10-16] MEDS: HYDROCHLOROTHIAZIDE 12.5 MG CAPSULE (FP) PO SCH (10:14)
[2020-10-16] MEDS: ENOXAPARIN NA (PORCINE) 40 MG/0.4 ML DISP.SYRIN SQ SCH (10:14)
[2020-10-16] MEDS: CEFTRIAXONE 1 GM in DEXTROSE 5%-WATER - 50 ML IVPB SCH (10:14)
[2020-10-16] MEDS: QUINAPRIL HCL 20 MG TABLET PO SCH (11:11)
[2020-10-16] MEDS ORDERED: METOPROLOL TARTRATE 5 MG/5 ML VIAL IVPUSH ONE (17:03)
[2020-10-16] MEDS: ATORVASTATIN CA 20 MG TABLET (FP) PO SCH (21:30)
[2020-10-16] MEDS: METOPROLOL TARTRATE 25 MG TABLET (FP) PO SCH (21:30)
[2020-10-16] MEDS: POLYETHYLENE GLYCOL 3350 119 GM BTL PO SCH (21:30)
[2020-10-16] MEDS: LATANOPROST 0.005% OPHTH SOLN 2.5ML BOTTLE OU SCH (21:36)
[2020-10-17 08:23] LABS: BASO % 0.1 % (0-2.0); HEMATOCRIT 39.9 % (32.4-45.2); LYMPH % 7.8 % (8-40); MCHC 32.6 g/dl (32.0-36.0); MEAN PLT VOLUME 10.4 fl (7.5-11.1); MONO % 12.3 % (3.8-10.2); NEUT % 79.8 % (42.8-82.8); PLATELET COUNT 245 K/MM3 (134-434); RBC 4.64 M/mm3 (3.60-5.2); RDW 14.3 % (11.6-15.6); WHITE BLOOD COUNT 15.5 K/mm3 (4.0-10.0)
[2020-10-17 08:50] LABS: ALBUMIN 3.4 g/dl (3.4-5.0); BLOOD UREA NITROGEN 28.2 mg/dL (7-18); CALCIUM 9.9 mg/dL (8.5-10.1)
[2020-10-17 08:53] LABS: CREATININE 0.8 mg/dL (0.55-1.3)
[2020-10-17 08:55] LABS: BILIRUBIN,TOTAL 0.5 mg/dL (0.2-1)
[2020-10-17] MEDS ORDERED: PT OWN MED DRAWER 7, Y5N ONE (09:47)
[2020-10-17] MEDS ORDERED: cefTRIAXone SODIUM 1 GM VIAL ONE (09:48)
[2020-10-17] MEDS ORDERED: DEXTROSE 5%-WATER - 50 ML IVPB ONE (09:48)
[2020-10-17] MEDS: METOPROLOL TARTRATE 25 MG TABLET (FP) PO SCH ×2 (10:17→22:44)
[2020-10-17] MEDS: QUINAPRIL HCL 20 MG TABLET PO SCH (10:17)
[2020-10-17] MEDS: HYDROCHLOROTHIAZIDE 12.5 MG CAPSULE (FP) PO SCH (10:17)
[2020-10-17] MEDS: POLYETHYLENE GLYCOL 3350 119 GM BTL PO SCH ×2 (10:19→22:44)
[2020-10-17] MEDS: CEFTRIAXONE 1 GM in DEXTROSE 5%-WATER - 50 ML IVPB SCH (10:19)
[2020-10-17] MEDS: ENOXAPARIN NA (PORCINE) 40 MG/0.4 ML DISP.SYRIN SQ SCH (10:19)
[2020-10-17] MEDS: TIMOLOL 0.5% OPHTHALMIC SOL 5 ML BOTTLE OU SCH (10:21)
[2020-10-17] MEDS ORDERED: FUROSEMIDE 40 MG/4 ML INJECTABLE VIAL IVPUSH ONE (16:05)
[2020-10-17] MEDS: ATORVASTATIN CA 20 MG TABLET (FP) PO SCH (22:44)
[2020-10-17] MEDS: LATANOPROST 0.005% OPHTH SOLN 2.5ML BOTTLE OU SCH (22:48)
[2020-10-18] MEDS ORDERED: METOPROLOL TARTRATE 5 MG/5 ML VIAL IVPUSH ONE (05:37)
[2020-10-18] MEDS ORDERED: METOPROLOL TARTRATE 25 MG TABLET (FP) PO ONE (05:38)
[2020-10-18] MEDS ORDERED: METOPROLOL TARTRATE 25 MG TABLET (FP) PO SCH (05:41)
[2020-10-18] MEDS ORDERED: FUROSEMIDE 40 MG/4 ML INJECTABLE VIAL IVPUSH ONE (08:07)
[2020-10-18 09:03] LABS: BASO % 0.4 % (0-2.0); EOS % 0.1 % (0-4.5); HEMATOCRIT 42.9 % (32.4-45.2); HEMOGLOBIN 14.2 GM/dL (10.7-15.3); LYMPH % 11.5 % (8-40); MCH 28.2 pg (25.7-33.7); MEAN CELL VOLUME 85.3 fl (80-96); MEAN PLT VOLUME 11.2 fl (7.5-11.1); MONO % 5.9 % (3.8-10.2); NEUT % 82.1 % (42.8-82.8); PLATELET COUNT 311 10^3/uL (134-434); RBC 5.03 M/mm3 (3.60-5.2); RDW 14.1 % (11.6-15.6); WHITE BLOOD COUNT 16.5 K/mm3 (4.0-10.0)
[2020-10-18 09:20] LABS: CALCIUM 9.8 mg/dL (8.5-10.1)
[2020-10-18 09:21] LABS: BLOOD UREA NITROGEN 44.4 mg/dL (7-18); MAGNESIUM 2.6 mg/dL (1.8-2.4)
[2020-10-18] MEDS ORDERED: PT OWN MED DRAWER 7, Y5N ONE (09:49)
[2020-10-18] MEDS ORDERED: cefTRIAXone SODIUM 1 GM VIAL ONE (09:49)
[2020-10-18] MEDS ORDERED: DEXTROSE 5%-WATER - 50 ML IVPB ONE ×3 (09:49→17:32)
[2020-10-18] MEDS: ENOXAPARIN NA (PORCINE) 40 MG/0.4 ML DISP.SYRIN SQ SCH (09:57)
[2020-10-18] MEDS: CEFTRIAXONE 1 GM in DEXTROSE 5%-WATER - 50 ML IVPB SCH (09:57)
[2020-10-18] MEDS: METOPROLOL TARTRATE 25 MG TABLET (FP) PO SCH ×2 (09:58→21:52)
[2020-10-18] MEDS: HYDROCHLOROTHIAZIDE 12.5 MG CAPSULE (FP) PO SCH (09:58)
[2020-10-18] MEDS: QUINAPRIL HCL 20 MG TABLET PO SCH (09:58)
[2020-10-18] MEDS: POLYETHYLENE GLYCOL 3350 119 GM BTL PO SCH ×2 (09:59→21:52)
[2020-10-18] MEDS: TIMOLOL 0.5% OPHTHALMIC SOL 5 ML BOTTLE OU SCH (10:00)
[2020-10-18] MEDS ORDERED: PIPERACILLIN/TAZOB 3.375 GM 3.375 GM in DEXTROSE 5%-WATER - 50 ML IVPB ONE (12:26)
[2020-10-18] MEDS ORDERED: PIPERACILLIN/TAZOBACTAM 3.375 GM VIAL IVPB ONE ×2 (12:56→17:32)
[2020-10-18] MEDS: PIPERACILLIN/TAZOB 3.375 GM 3.375 GM in DEXTROSE 5%-WATER - 50 ML IVPB SCH (17:53)
[2020-10-18] MEDS: APIXABAN 5 MG TABLET PO SCH (21:52)
[2020-10-18] MEDS: LATANOPROST 0.005% OPHTH SOLN 2.5ML BOTTLE OU SCH (21:52)
[2020-10-18] MEDS: ATORVASTATIN CA 20 MG TABLET (FP) PO SCH (21:52)
[2020-10-19] MEDS ORDERED: PIPERACILLIN/TAZOBACTAM 3.375 GM VIAL IVPB ONE ×3 (03:15→16:42)
[2020-10-19] MEDS ORDERED: DEXTROSE 5%-WATER - 50 ML IVPB ONE ×3 (03:16→16:42)
[2020-10-19] MEDS: PIPERACILLIN/TAZOB 3.375 GM 3.375 GM in DEXTROSE 5%-WATER - 50 ML IVPB SCH ×3 (03:59→17:02)
[2020-10-19 07:19] LABS: BASO % 0.3 % (0-2.0); EOS % 0.2 % (0-4.5); HEMATOCRIT 39.9 % (32.4-45.2); HEMOGLOBIN 13.2 GM/dL (10.7-15.3); LYMPH % 17.1 % (8-40); MCH 27.8 pg (25.7-33.7); MCHC 32.9 g/dl (32.0-36.0); MEAN CELL VOLUME 84.5 fl (80-96); MEAN PLT VOLUME 10.6 fl (7.5-11.1); MONO % 8.9 % (3.8-10.2); NEUT % 73.5 % (42.8-82.8); PLATELET COUNT 347 10^3/uL (134-434); RBC 4.73 M/mm3 (3.60-5.2); WHITE BLOOD COUNT 15.8 K/mm3 (4.0-10.0)
[2020-10-19 07:41] LABS: CALCIUM 9.3 mg/dL (8.5-10.1); MAGNESIUM 2.8 mg/dL (1.8-2.4)
[2020-10-19 07:45] LABS: CREATININE 1.4 mg/dL (0.55-1.3)
[2020-10-19 07:57] LABS: BLOOD UREA NITROGEN 75.7 mg/dL (7-18)
[2020-10-19] MEDS ORDERED: SODIUM CHLORIDE 250 ML IV STA (07:58)
[2020-10-19] MEDS: APIXABAN 5 MG TABLET PO SCH ×2 (09:18→21:49)
[2020-10-19] MEDS: TIMOLOL 0.5% OPHTHALMIC SOL 5 ML BOTTLE OU SCH (09:18)
[2020-10-19] MEDS: METOPROLOL TARTRATE 25 MG TABLET (FP) PO SCH ×2 (09:18→21:48)
[2020-10-19] MEDS: HYDROCHLOROTHIAZIDE 12.5 MG CAPSULE (FP) PO SCH (09:18)
[2020-10-19] MEDS: POLYETHYLENE GLYCOL 3350 119 GM BTL PO SCH ×2 (09:18→21:49)
[2020-10-19] MEDS ORDERED: SODIUM CHLORIDE 500 ML IV STA (12:05)
[2020-10-19] MEDS: ATORVASTATIN CA 20 MG TABLET (FP) PO SCH (21:49)
[2020-10-19] MEDS: LATANOPROST 0.005% OPHTH SOLN 2.5ML BOTTLE OU SCH (21:54)
[2020-10-20] MEDS ORDERED: DEXTROSE 5%-WATER - 50 ML IVPB ONE ×2 (01:28→09:18)
[2020-10-20] MEDS ORDERED: PIPERACILLIN/TAZOBACTAM 3.375 GM VIAL IVPB ONE ×2 (01:28→09:18)
[2020-10-20] MEDS: PIPERACILLIN/TAZOB 3.375 GM 3.375 GM in DEXTROSE 5%-WATER - 50 ML IVPB SCH ×2 (01:44→09:20)
[2020-10-20 07:10] LABS: BASO % 0.6 % (0-2.0); EOS % 1.5 % (0-4.5); HEMATOCRIT 40.2 % (32.4-45.2); HEMOGLOBIN 13.4 GM/dL (10.7-15.3); LYMPH % 24.4 % (8-40); MCH 28.2 pg (25.7-33.7); MCHC 33.4 g/dl (32.0-36.0); MEAN CELL VOLUME 84.2 fl (80-96); MEAN PLT VOLUME 10.2 fl (7.5-11.1); MONO % 11.1 % (3.8-10.2); NEUT % 62.4 % (42.8-82.8); PLATELET COUNT 386 10^3/uL (134-434); RBC 4.77 M/mm3 (3.60-5.2); RDW 14.3 % (11.6-15.6); WHITE BLOOD COUNT 11.5 K/mm3 (4.0-10.0)
[2020-10-20 07:30] LABS: CALCIUM 9.7 mg/dL (8.5-10.1)
[2020-10-20 07:33] LABS: MAGNESIUM 2.8 mg/dL (1.8-2.4)
[2020-10-20 07:34] LABS: CREATININE 1.1 mg/dL (0.55-1.3)
[2020-10-20 07:40] LABS: BLOOD UREA NITROGEN 48.4 mg/dL (7-18)
[2020-10-20] MEDS: HYDROCHLOROTHIAZIDE 12.5 MG CAPSULE (FP) PO SCH (09:20)
[2020-10-20] MEDS: APIXABAN 5 MG TABLET PO SCH (09:20)
[2020-10-20] MEDS: METOPROLOL TARTRATE 25 MG TABLET (FP) PO SCH (09:20)
[2020-10-20] MEDS: TIMOLOL 0.5% OPHTHALMIC SOL 5 ML BOTTLE OU SCH (09:21)
[2020-10-20] MEDS: POLYETHYLENE GLYCOL 3350 119 GM BTL PO SCH (09:22)
[2020-10-20 10:42] VITALS: BP 119/85; TEMP 97.6
[2020-10-20 14:11] VITALS: PULSE 120
== END 2020-10-20 14:38 | disposition home health service (06) | DRG 689 ==
LOC: JER 15:04 → JERBED 20:01 → J4W 21:35 → OBSVTOIN 10-19 11:28
PROVIDERS: ADMIT Hospitalist; ATTEND Internal Medicine
DX: N39.0 Urinary tract infection, site not specified (principal); J81.0 Acute pulmonary edema; J18.9 Pneumonia, unspecified organism; J98.11 Atelectasis; N17.9 Acute kidney failure, unspecified; I31.3 Pericardial effusion (noninflammatory); E78.5 Hyperlipidemia, unspecified; I10 Essential (primary) hypertension; R73.03 Prediabetes; H40.9 Unspecified glaucoma; F03.90 Unspecified dementia, unspecified severity, without behavioral disturbance, psychotic disturbance, mood disturbance, and anxiety; B96.89 Other specified bacterial agents as the cause of diseases classified elsewhere; I16.0 Hypertensive urgency; I48.91 Unspecified atrial fibrillation; D72.829 Elevated white blood cell count, unspecified; R09.02 Hypoxemia
CPT/HCPCS: 36415; 71045-TC-FY; 80048; 80053; 81003; 82550; 82962; 83735; 84100; 84484; 85025; 85027; 87086; 87186; 93005; 93010; 93306-TC; 94010; 94761; 97116-GP; 97161-GP; 99285-25; C9803; G0378; U0003; U0005